=== PATIENT | female | born 1975 | race Caucasian/White ===

== ENCOUNTER 2017-06-02 11:55 | Observation (INO) | payer SELFPAY ==
[2017-06-02] VITALS (11 sets, daily range): BP systolic 124–157; BP diastolic 76–88; PULSE 87–96; RESP 16–22; TEMP 97.5–98.3; O2SAT 95–98
[~2017-06-02] VITALS: Ht 177.8 cm; Wt 100.0 kg
[~2017-06-02 11:55] MED LIST: ZOFR4TAB3 SL
--- NOTE | 2017-06-02 11:59 | PD ---
Physical Exam Date Seen by Provider: Jun 02, 2017 Time Seen by Provider: 11:57 Narrative 41 yo male here for chest tightness and hematemesis yesterday. Per patient she vomited phlem and "some blood" yesterday. Been coughing. Has chest tightness today. No abdominal pain. Pain is 7/10. Pressure like. No blood thinners. Vitals are stable in triage. Awaiting bed placement. Data Data Last Documented VS Vital Signs Date Time Temp Pulse Resp B/P Pulse Ox O2 Delivery O2 Flow Rate FiO2 06/02/17 11:56 98.3 92 20 157/88 96 Room Air [facility] Medical Record Reviewed: Yes Supervised Visit with GUILLERMO: No Gamaliel Zimmer Jun 02, 2017 11:59
[2017-06-02] MEDS ORDERED: ASPIRIN 325 MG TAB PO ONE (12:15)
[2017-06-02] MEDS ORDERED: SODIUM CHLORIDE 0.9% FLUSH 10 ML FLUSH IVF PRN (12:15)
--- NOTE | 2017-06-02 12:18 | PD ---
HPI Chief Complaint: Chest Pain Time Seen by Provider: 12:03 Travel History International Travel<30 days: No Contact w/Intl Traveler<30days: No Traveled to known affect area: No History of Present Illness HPI 41-year-old female arrives by private vehicle. Yesterday the patient vomited a few times. At one point there were spicules of blood in the emesis. Today she complains of retrosternal chest pain pleuritic in nature. Associated symptoms include shortness of breath. She's had no fever. She reports a history of DVTs in the past and has an IVC filter. She does not take any anticoagulants at this time. No vomiting today. PFSH Past Medical History Arthritis: No Asthma: No Autoimmune Disease: No Blood Disorders: No Anxiety: No Depression: No Heart Rhythm Problems: Yes (HEART POUNDED ON METFORMIN) Cancer: Yes (uterine) Cardiovascular Problems: No High Cholesterol: No Chemotherapy: No Chest Pain: No Congestive Heart Failure: No COPD: No Cerebrovascular Accident: No Diabetes: No Diminished Hearing: No Deep Vein Thrombosis: Yes (FILTER IN NECK) Endocrine: No GERD: No Glaucoma: No Genitourinary: No Headaches: Yes Hepatitis: No Hiatal Hernia: No Hypertension: No Immune Disorder: No Kidney Stones: No Musculoskeletal: No Neurologic: Yes Psychiatric: No Reproductive: No Respiratory: Yes (ASTHMA) Migraines: Yes Myocardial Infarction: No Radiation Therapy: No Renal Failure: No Seizures: No Sickle Cell Disease: No Sleep Apnea: No Thyroid Disease: No Ulcer: No ?: Not LMP: hyst : 0 Dilation and Curettage (D&C): Yes Past Surgical History Abdominal Surgery: No AICD: No Appendectomy: No Arteriovenous Shunt: No Cardiac Surgery: No Cholecystectomy: No Ear Surgery: No Endocrine Surgery: No Eye Surgery: No Genitourinary Surgery: No Gynecologic Surgery: Yes (D&C OCT 2009, PRESENTLY ADMITTED POST OP [facility]) Hysterectomy: Yes Insulin Pump: No Joint Replacement: No Oral Surgery: No Pacemaker: No Thoracic Surgery: No Other Surgery: Yes (FILTER PLACED IN NECK) Social History Alcohol Use: No (SOCIALLY) Tobacco Use: No Substance Use: No Allergies-Medications (Allergen,Severity, Reaction): Coded Allergies: Cipro (Verified Allergy, Intermediate, Rash, 06/02/17) Metformin (Verified Allergy, Intermediate, sob, 06/02/17) Reported Meds & Prescriptions Reported Meds & Active Scripts Active No Active Prescriptions or Reported Medications Review of Systems Except as stated in HPI: all other systems reviewed are Neg Physical Exam Narrative GENERAL: 41-year-old female well-nourished well-developed acute distress SKIN: Warm and dry. HEAD: Atraumatic. Normocephalic. EYES: Pupils equal and round. No scleral icterus. No injection or drainage. ENT: No nasal bleeding or discharge. Mucous membranes pink and moist. NECK: Trachea midline. No JVD. CARDIOVASCULAR: Regular rate and rhythm. RESPIRATORY: No accessory muscle use. Clear to auscultation. Breath sounds equal bilaterally. GASTROINTESTINAL: Abdomen soft, non-tender, nondistended. Hepatic and splenic margins not palpable. MUSCULOSKELETAL: Extremities without clubbing, cyanosis, or edema. No obvious deformities. NEUROLOGICAL: Awake and alert. No obvious cranial nerve deficits. Motor grossly within normal limits. Five out of 5 muscle strength in the arms and legs. Normal speech. PSYCHIATRIC: Appropriate mood and affect; insight and judgment normal. Data Data Last Documented VS Vital Signs Date Time Temp Pulse Resp B/P Pulse Ox O2 Delivery O2 Flow Rate FiO2 06/02/17 13:06 97.9 96 20 131/79 98 Nasal Cannula 2 Vital signs reviewed Orders Electrocardiogram (06/02/17 12:09) Basic Metabolic Panel (Bmp) (06/02/17 12:09) Ckmb (Isoenzyme) Profile (06/02/17 12:09) Complete Blood Count With Diff (06/02/17 12:09) Magnesium (Mg) (06/02/17 12:09) Prothrombin Time / Inr (Pt) (06/02/17 12:09) Act Partial Throm Time (Ptt) (06/02/17 12:09) Troponin I (06/02/17 12:09) Chest, Single Ap (06/02/17 12:09) Ecg Monitoring (06/02/17 12:09) Iv Access Insert/Monitor (06/02/17 12:09) Oximetry (06/02/17 12:09) Oxygen Administration (06/02/17 12:09) Aspirin (Aspirin) (06/02/17 12:15) Sodium Chloride 0.9% Flush (Ns Flush) (06/02/17 12:15) Ct Pulmonary Angiogram (06/02/17 12:09) Iohexol 350 Inj (Omnipaque 350 Inj) (06/02/17 13:32) Activity Bed Rest With Brp (06/02/17 14:09) Vital Signs (Adult) Q4H (06/02/17 14:09) Cardiac Rhythm .As Directed (06/02/17 14:09) Notify Dr: Other .PRN (06/02/17 14:09) Notify Dr. Parameters (06/02/17 14:09) Resp Oxygen Nasal Cannula (06/02/17 ) Ckmb (Isoenzyme) Profile (06/02/17 14:09) Ckmb (Isoenzyme) Profile (06/02/17 17:09) Troponin I (06/02/17 14:09) Troponin I (06/02/17 17:09) Electrocardiogram (06/02/17 14:09) Electrocardiogram (06/02/17 17:09) ^ Obtain (06/02/17 14:09) Sodium Chloride 0.9% Flush (Ns Flush) (06/02/17 14:15) Sodium Chloride 0.9% Flush (Ns Flush) (06/02/17 21:00) Acetaminophen (Tylenol) (06/02/17 14:15) Acetamin-Hydrocod 325-7.5 Mg (Downey 7.5 (06/02/17 14:15) Morphine Inj (Morphine Inj) (06/02/17 14:15) Ondansetron Inj (Zofran Inj) (06/02/17 14:15) Nitroglycerin Sl (Nitrostat Sl) (06/02/17 14:15) Aspirin (Aspirin) (06/03/17 09:00) Temazepam (Restoril) (06/02/17 14:15) Alprazolam (Xanax) (06/02/17 14:15) Community Outreach Manager / Telemetry [email or web address] (06/02/17 14:09) Admit Order (Ed Use Only) (06/02/17 14:09) Labs Laboratory Tests Test 06/02/17 12:20 White Blood Count 6.5 TH/MM3 Red Blood Count 4.45 MIL/MM3 Hemoglobin 12.8 GM/DL Hematocrit 38.5 % Mean Corpuscular Volume 86.4 FL Mean Corpuscular Hemoglobin 28.6 PG Mean Corpuscular Hemoglobin 33.1 % Concent Red Cell Distribution Width 15.6 % Platelet Count 146 TH/MM3 Mean Platelet Volume 8.7 FL Neutrophils (%) (Auto) 66.3 % Lymphocytes (%) (Auto) 25.5 % Monocytes (%) (Auto) 5.0 % Eosinophils (%) (Auto) 2.7 % Basophils (%) (Auto) 0.5 % Neutrophils # (Auto) 4.3 TH/MM3 Lymphocytes # (Auto) 1.6 TH/MM3 Monocytes # (Auto) 0.3 TH/MM3 Eosinophils # (Auto) 0.2 TH/MM3 Basophils # (Auto) 0.0 TH/MM3 CBC Comment DIFF FINAL Differential Comment Prothrombin Time 11.4 SEC Prothromb Time International 1.0 RATIO Ratio Activated Partial 25.2 SEC Thromboplast Time Sodium Level 136 MEQ/L Potassium Level 3.7 MEQ/L Chloride Level 102 MEQ/L Carbon Dioxide Level 26.3 MEQ/L Anion Gap 8 MEQ/L Blood Urea Nitrogen 8 MG/DL Creatinine 0.63 MG/DL Estimat Glomerular Filtration 105 ML/MIN Rate Random Glucose 229 MG/DL Calcium Level 9.0 MG/DL Magnesium Level 2.3 MG/DL Total Creatine Kinase 28 U/L Troponin I LESS THAN 0.02 NG/ML MDM Medical Decision Making Medical Screen Exam Complete: Yes Emergency Medical Condition: Yes Medical Record Reviewed: Yes Differential Diagnosis NSTEMI, unstable angina, coronary vasospasm, PE, PTX, aortic dissection, pericarditis, myocarditis, endocarditis, PNA, esophageal disease, aneurysm, musculoskeletal etiologies, anxiety, cocaine/sympathomimetic abuse Narrative Course CBC & BMP Diagram 06/02/17 12:20 Troponin less than 0.02 EKG: Sinus, rate 92, QRS interval 140 ms Last 24 hours Impressions Chest X-Ray 06/02/17 1209 Signed Impressions: Service Date/Time: Friday, June 02, 2017 12:29 - CONCLUSION: Mild basilar parenchymal opacities Rodrigo Li MD CT Angiography 06/02/17 1209 Signed Impressions: Service Date/Time: Friday, June 02, 2017 13:28 - CONCLUSION: 1. No evidence of pulmonary emboli. 2. No evidence of acute cardiac bony processes. 3. Hepatosplenomegaly; unchanged. Mynor Howell MD The patient will be For chest pain center evaluation. Diagnosis Primary Impression: Chest pain Qualified Code: R07.9 - Chest pain, unspecified type Admitting Information Admitting Physician Requests: Observation Scripts No Active Prescriptions or Reported Meds Alfred Roper MD Jun 02, 2017 12:18
[2017-06-02 12:34] LABS: AUTOMATED NEUTROPHIL # 4.3 TH/MM3 (1.8-7.7); BASOPHIL % 0.5 % (0.0-2.0); EOSINOPHIL # 0.2 TH/MM3 (0-0.4); EOSINOPHIL % 2.7 % (0.0-4.0); HEMATOCRIT 38.5 % (35.0-46.0); HEMO FLAGS DIFF FINAL; LYMPH % 25.5 % (9.0-44.0); LYMPHOCYTE # 1.6 TH/MM3 (1.0-4.8); MEAN CELL VOLUME 86.4 FL (80.0-100.0); MEAN CORPUSCULAR HEMOGLOBIN 28.6 PG (27.0-34.0); MEAN CORPUSCULAR HGB CONC 33.1 % (32.0-36.0); NEUT % 66.3 % (16.0-70.0); PLATELET COUNT 146 TH/MM3 (150-450); RED BLOOD COUNT 4.45 MIL/MM3 (4.00-5.30); RED CELL DISTRIBUTION WIDTH 15.6 % (11.6-17.2); WHITE BLOOD COUNT 6.5 TH/MM3 (4.0-11.0)
[2017-06-02 12:44] LABS: APTT (PATIENT) 25.2 SEC (24.3-30.1); PROTHROMBIN TIME - PATIENT 11.4 SEC (9.8-11.6)
[2017-06-02 12:52] LABS: ANION GAP 8 MEQ/L (5-15); BICARBONATE 26.3 MEQ/L (21.0-32.0); BLOOD UREA NITROGEN 8 MG/DL (7-18); CHLORIDE 102 MEQ/L (98-107); GLOMERULAR FILTRATION RATE 105 ML/MIN (>89); MAGNESIUM 2.3 MG/DL (1.5-2.5); POTASSIUM 3.7 MEQ/L (3.5-5.1); SODIUM (NA) 136 MEQ/L (136-145)
[2017-06-02 12:57] LABS: CREATINE KINASE 28 U/L (26-192)
--- NOTE | 2017-06-02 12:58 | RADRPT ---
EXAM DATE/TIME: 06/02/2017 12:29 [facility] COMPARISON: CHEST SINGLE AP, March 28, 2016, 1:57. INDICATIONS : Chest pain. MEDICAL HISTORY : None. SURGICAL HISTORY : None. ENCOUNTER: Initial ACUITY: 1 day PAIN SCORE: 8/10 LOCATION: Bilateral upper chest FINDINGS: Mild streaky basilar parenchymal opacity may be atelectasis. There is no evidence of effusion. Cardio mediastinal contours are satisfactory. CONCLUSION: Mild basilar parenchymal opacities Rodrigo Li MD on June 02, 2017 at 12:56 Board Certified Radiologist. This report was verified electronically.
[2017-06-02] MEDS ORDERED: IOHEXOL 350 MG/ML 10 ML VIAL (for RAD DIAG) IV ONE (13:32)
--- NOTE | 2017-06-02 13:49 | RADRPT ---
EXAM DATE/TIME: 06/02/2017 13:28 [facility] COMPARISON: CT PULMONARY ANGIOGRAM, March 26, 2014, 9:03. INDICATIONS : Chest pains with shortness of breath. IV CONTRAST: 50 cc Omnipaque 350 (iohexol) IV RADIATION DOSE: 23.00 CTDIvol (mGy) ; Patient body habitus MEDICAL HISTORY : Deep venous thrombosis. Asthma, Uterine cancer. SURGICAL HISTORY : Hysterectomy. ENCOUNTER: Initial ACUITY: 1 day PAIN SCALE: 5/10 LOCATION: Bilateral chest TECHNIQUE: Volumetric scanning of the chest was performed using a pulmonary embolism protocol MIP images were re constructed. Using automated exposure control and adjustment of the mA and/or kV according to patien t size, radiation dose was kept as low as reasonably achievable to obtain optimal diagnostic quality images. DICOM format image data is available electronically for review and comparison. Follow-up recommendations for incidentally detected pulmonary nodules are based at a minimum on nodul e size and patient risk factors according to Fleischner Society Guidelines. FINDINGS: PULMONARY ARTERIES: No filling defects are seen in the pulmonary arteries through the segmental level. LUNGS: There is no consolidation or pneumothorax . No concerning pulmonary nodule is visualized. PLEURAE: There is no pleural thickening or pleural effusion. MEDIASTINUM: There is good visualization of the great vessels of the middle mediastinum. No evidence of mediastin al or hilar adenopathy/mass. MUSCULOSKELETAL: Within normal limits for patient age. MISCELLANEOUS: The visualized upper abdominal organs demonstrate no acute abnormality. Again noted is enlargement of the liver and spleen. CONCLUSION: 1. No evidence of pulmonary emboli. 2. No evidence of acute cardiac bony processes. 3. Hepatosplenomegaly; unchanged. Mynor Howell MD on June 02, 2017 at 13:44 Board Certified Radiologist. This report was verified electronically.
[2017-06-02] MEDS ORDERED: SODIUM CHLORIDE 0.9% FLUSH 10 ML FLUSH IV FLUSH PRN (14:15)
[2017-06-02] MEDS ORDERED: ALPRAZolam 0.25 MG TAB PO PRN (14:15)
[2017-06-02] MEDS ORDERED: NITROGLYCERIN 0.4 MG SL 25 TABS/BTL SL PRN (14:15)
[2017-06-02] MEDS ORDERED: MORPHINE SULFATE 4 MG/ML INJ IV PRN (14:15)
[2017-06-02] MEDS ORDERED: ONDANSETRON HCL 4 MG/2 ML VIAL IV PRN (14:15)
[2017-06-02] MEDS ORDERED: ACETAMINOPHEN 500 MG CPLT PO PRN (14:15)
[2017-06-02] MEDS ORDERED: TEMAZEPAM 15 MG CAP PO PRN (14:15)
[2017-06-02] MEDS ORDERED: ACETAMINOPHEN/HYDROcodone 325 MG/7.5 MG TAB PO PRN (14:15)
[2017-06-02] MEDS: SODIUM CHLORIDE 0.9% FLUSH 10 ML FLUSH IV FLUSH SCH (14:29)
[2017-06-02] MEDS ORDERED: LORazepam 2 MG/ML VIAL IV PUSH ONE (14:30)
--- NOTE | 2017-06-02 16:57 | HHI.HP ---
[facility] Service [facility] Hospitalists Primary Care Physician No Primary Care Physician Admission Diagnosis Chest Pain Diagnoses: Chief Complaint: hematemesis Travel History International Travel<30 Days: No Contact w/Intl Traveler <30 Da: No Traveled to Known Affected Are: No History of Present Illness pateint is a 41 years old female came to the hospital complaining of chest pain. On further history patient has been having episodes of hematemesis that started last evening one hour after having dinner. Noted bright red blood. Also initially states that she coughed. Denies any choking sensation. States + "heartburn". On further history patient takes Excedrin equate at least 4-5 tablets at a time usually taking 3x a week almost on a regular basis. On review this medication has indomethacin component. Patient states though that she make sure that she takes it on a full stomach. Patient denies any melena or hematochezia. Bowel movements has been regular last bowel movement was yesterday. Denies any weight loss. Denies any reflux sensation Incidentally patient also have a a 75 pound pet dog that landed on her chest and abdomen few days ago. Review of Systems Constitutional: DENIES: Fever, Weight loss, Chills, Change in appetite Eyes: DENIES: Blurred vision, Double Vision Ears, nose, mouth, throat: DENIES: Tinnitus, Ear Pain, Epistaxis, Odynophagia Respiratory: DENIES: Cough, Hemoptysis, Sputum production, Shortness of breath Cardiovascular: DENIES: Chest pain, Palpitations, Dyspnea on Exertion, Lower Extremity Edema, Orthopnea Gastrointestinal: DENIES: Black stools, Bloody stools, Difficulty Swallowing, Anorexia Genitourinary: DENIES: Urgency, Hematuria, Vaginal discharge Musculoskeletal: DENIES: Joint pain, Stiffness Integumentary: DENIES: Pruritus Hematologic/lymphatic: DENIES: Bruising Immunologic/allergic: DENIES: Urticaria Neurologic: DENIES: Headache, Speech Problems, Tremor Psychiatric: DENIES: Suicidal Ideation, Homicidal Ideation Past Family Social History Past Medical History History of uterine cancer in 2010 status post total abdominal hysterectomy and bilateral salpingo-oophorectomy. Migraine headaches Reported Medications Excedrin Migraine Allergies: Coded Allergies: Cipro (Verified Allergy, Intermediate, Rash, 06/02/17) Metformin (Verified Allergy, Intermediate, sob, 06/02/17) Family History Positive family history of hypertension - father Mother with degenerative joint disease Social History Nonsmoker Very rare alcohol use Denies any IV drug use Physical Exam Vital Signs Vital Signs Date Time Temp Pulse Resp B/P Pulse Ox O2 Delivery O2 Flow Rate FiO2 06/02/17 16:38 98.3 91 16 124/76 97 06/02/17 15:50 97.8 89 18 126/81 98 Nasal Cannula 2 06/02/17 14:30 97 Nasal Cannula 2.00 06/02/17 14:30 97.8 88 20 126/77 98 Nasal Cannula 2 06/02/17 13:06 97.9 96 20 131/79 98 Nasal Cannula 2 06/02/17 12:10 22 98 Nasal Cannula 2 06/02/17 12:10 98 Nasal Cannula 2 06/02/17 12:06 95 22 99 Nasal Cannula 2 06/02/17 11:56 98.3 92 20 157/88 96 Room Air Physical Exam GENERAL: This is a well-nourished, well-developed patient, in no apparent distress. Obese SKIN: No rashes, ecchymoses or lesions. Cool and dry. HEAD: Atraumatic. Normocephalic. No temporal or scalp tenderness. EYES: Pupils equal round and reactive. Extraocular motions intact. No scleral icterus. ENT: Nose without bleeding, Throat without erythema, tonsillar hypertrophy or exudate. Airway patent. NECK: Trachea midline. No JVD or lymphadenopathy. Supple, nontender, no meningeal signs. CARDIOVASCULAR: Regular rate and rhythm without murmurs, gallops, or rubs. No chest wall tenderness RESPIRATORY: Clear to auscultation. Breath sounds equal bilaterally. No wheezes , rales, or rhonchi. GASTROINTESTINAL: Abdomen soft, non-tender, flabby good bowel sounds No guarding. No rigidity MUSCULOSKELETAL: Extremities without clubbing, cyanosis, or edema. No joint tenderness, effusion, or edema noted. No calf tenderness. Negative Homans sign bilaterally. NEUROLOGICAL: Awake and alert. Cranial nerves II through XII intact. Motor and sensory grossly within normal limits. Five out of 5 muscle strength in all muscle groups. Normal speech. Laboratory Laboratory Tests Test 06/02/17 06/02/17 12:20 15:00 White Blood Count 6.5 Red Blood Count 4.45 Hemoglobin 12.8 Hematocrit 38.5 Mean Corpuscular Volume 86.4 Mean Corpuscular Hemoglobin 28.6 Mean Corpuscular Hemoglobin 33.1 Concent Red Cell Distribution Width 15.6 Platelet Count 146 Mean Platelet Volume 8.7 Neutrophils (%) (Auto) 66.3 Lymphocytes (%) (Auto) 25.5 Monocytes (%) (Auto) 5.0 Eosinophils (%) (Auto) 2.7 Basophils (%) (Auto) 0.5 Neutrophils # (Auto) 4.3 Lymphocytes # (Auto) 1.6 Monocytes # (Auto) 0.3 Eosinophils # (Auto) 0.2 Basophils # (Auto) 0.0 CBC Comment DIFF FINAL Differential Comment Prothrombin Time 11.4 Prothromb Time International 1.0 Ratio Activated Partial 25.2 Thromboplast Time Sodium Level 136 Potassium Level 3.7 Chloride Level 102 Carbon Dioxide Level 26.3 Anion Gap 8 Blood Urea Nitrogen 8 Creatinine 0.63 Estimat Glomerular Filtration 105 Rate Random Glucose 229 Calcium Level 9.0 Magnesium Level 2.3 Total Creatine Kinase 28 Troponin I LESS THAN 0.02 LESS THAN 0.02 Result Diagram: 06/02/17 1220 06/02/17 1220 Imaging Last Impressions Chest X-Ray 06/02/17 1209 Signed Impressions: Service Date/Time: Friday, June 02, 2017 12:29 - CONCLUSION: Mild basilar parenchymal opacities Rodrigo Li MD CT Angiography 06/02/17 1209 Signed Impressions: Service Date/Time: Friday, June 02, 2017 13:28 - CONCLUSION: 1. No evidence of pulmonary emboli. 2. No evidence of acute cardiac bony processes. 3. Hepatosplenomegaly; unchanged. Mynor Howell MD Assessment and Plan Assessment and Plan 41-year-old female with Upper GI bleeding episodes of hematemesis- possible NSAID induced gastropathy associated with retching and vomiting. Will get GI consult to evaluate with endoscopy Clear liquids nothing by mouth post midnight Start patient on IV Protonix 40 mg daily Chest pain likely GI relate Troponin negative. 12-lead EKG no acute ST-T wave changes History of migraine headaches. Advice on NSAIDs use. Ultram when necessary for headaches Hyperglycemia blood sugar of 229. Possible glucose intolerance with obesity. Patient states that he had punch drink prior to coming in Obesity BMI of 31.6 We'll check a blood sugar twice a day and monitor. Will do some diabetes teaching counseled. Goals. Nutrition consult On review of records positive palpitations with metformin and when asked about this patient states that he was she was placed on this for possible PCO S prior to the abdominal hysterectomy Diet modification. We will check a hemoglobin A1c Discussed with patient and family member at bedside Motivated with weight reduction Discussed Condition With Patient Raji Perez MD Jun 02, 2017 16:57
[2017-06-02] MEDS: PANTOPRAZOLE SODIUM 40 MG VIAL IV PUSH SCH (17:52)
[2017-06-02 18:11] LABS: CREATINE KINASE 22 U/L (26-192)
--- NOTE | 2017-06-02 18:32 | PD.CONS ---
HPI History of Present Illness This is a 41 year old female who complains of three episodes of hematemesis yesterday and today. she reports first episode of emesis contained mucous and blood but no food. She states subsequent episodes of emesis had stringy red blood. No coffee grounds. She has since noticed some chest discomfort described as dull, moderate and worse with breathing. Never had this happen before. Reports mild symptoms of heartburn when she eats spicy food that responds to drinking milk. No dysphagia. She has headaches and takes Excedrin and other nsaids. She has never had ulcers. She has past medical history of uterine cancer and had hysterectomy. ROS: She denies abdominal pain, fever chills, myalgias, rash. Otherwise complete ros is negative. PFSH Past Medical History History of uterine cancer in 2010 status post total abdominal hysterectomy and bilateral salpingo-oophorectomy. Migraine headaches Past Surgical History Hysterectomy Coded Allergies: Cipro (Verified Allergy, Intermediate, Rash, 06/02/17) Metformin (Verified Allergy, Intermediate, sob, 06/02/17) Family History Positive family history of hypertension - father Mother with degenerative joint disease Social History Nonsmoker Very rare alcohol use Denies any IV drug use GI Exam Vitals I&O Vital Signs Date Time Temp Pulse Resp B/P Pulse Ox O2 Delivery O2 Flow Rate FiO2 06/02/17 16:38 98.3 91 16 124/76 97 06/02/17 15:50 97.8 89 18 126/81 98 Nasal Cannula 2 06/02/17 14:30 97 Nasal Cannula 2.00 06/02/17 14:30 97.8 88 20 126/77 98 Nasal Cannula 2 06/02/17 13:06 97.9 96 20 131/79 98 Nasal Cannula 2 06/02/17 12:10 22 98 Nasal Cannula 2 06/02/17 12:10 98 Nasal Cannula 2 06/02/17 12:06 95 22 99 Nasal Cannula 2 06/02/17 11:56 98.3 92 20 157/88 96 Room Air Laboratory Test 06/02/17 06/02/17 06/02/17 12:20 15:00 17:26 White Blood Count 6.5 TH/MM3 Red Blood Count 4.45 MIL/MM3 Hemoglobin 12.8 GM/DL Hematocrit 38.5 % Mean Corpuscular Volume 86.4 FL Mean Corpuscular Hemoglobin 28.6 PG Mean Corpuscular Hemoglobin 33.1 % Concent Red Cell Distribution Width 15.6 % Platelet Count 146 TH/MM3 Mean Platelet Volume 8.7 FL Neutrophils (%) (Auto) 66.3 % Lymphocytes (%) (Auto) 25.5 % Monocytes (%) (Auto) 5.0 % Eosinophils (%) (Auto) 2.7 % Basophils (%) (Auto) 0.5 % Neutrophils # (Auto) 4.3 TH/MM3 Lymphocytes # (Auto) 1.6 TH/MM3 Monocytes # (Auto) 0.3 TH/MM3 Eosinophils # (Auto) 0.2 TH/MM3 Basophils # (Auto) 0.0 TH/MM3 CBC Comment DIFF FINAL Differential Comment Prothrombin Time 11.4 SEC Prothromb Time International 1.0 RATIO Ratio Activated Partial 25.2 SEC Thromboplast Time Sodium Level 136 MEQ/L Potassium Level 3.7 MEQ/L Chloride Level 102 MEQ/L Carbon Dioxide Level 26.3 MEQ/L Anion Gap 8 MEQ/L Blood Urea Nitrogen 8 MG/DL Creatinine 0.63 MG/DL Estimat Glomerular Filtration 105 ML/MIN Rate Random Glucose 229 MG/DL Calcium Level 9.0 MG/DL Magnesium Level 2.3 MG/DL Total Creatine Kinase 28 U/L 22 U/L Troponin I LESS THAN 0.02 LESS THAN 0.02 LESS THAN 0.02 NG/ML NG/ML NG/ML Physical Examination HEENT: Pupils round and reactive to light; normocephalic; atraumatic; no jaundice. Throat is clear. NECK: Neck is supple, no JVD, no lymphadenopathy. CHEST: Chest is clear to auscultation and percussion. CARDIAC: Regular rate and rhythm with no murmur gallop or rubs. ABDOMEN: Soft, nondistended, nontender; no hepatosplenomegaly; bowel sounds are present in all four quadrants. EXTREMITIES: No clubbing, cyanosis, or edema. SKIN: Normal; no rash; no jaundice. Few tattoos. 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 Assessment and Plan Plan Imp: Hematemesis Chest discomfort, possibly due to GERD. Plan: PPI protonix 40mg IV BID. EGD tomorrow. Alek Mooney MD Jun 02, 2017 18:32
[2017-06-02] MEDS: traMADol/ACETAMINOPHEN 37.5/325 1 TAB PO PRN (21:03)
[2017-06-02 22:28] LABS: CREATINE KINASE 23 U/L (26-192)
[2017-06-03] VITALS (14 sets, daily range): BP systolic 122–128; BP diastolic 67–74; PULSE 78–95; RESP 15–20; TEMP 97.6–98.7; O2SAT 94–98
[2017-06-03] MEDS: traMADol/ACETAMINOPHEN 37.5/325 1 TAB PO PRN (05:24)
[2017-06-03 07:18] LABS: AUTOMATED NEUTROPHIL # 4.8 TH/MM3 (1.8-7.7); BASOPHIL % 0.5 % (0.0-2.0); EOSINOPHIL # 0.2 TH/MM3 (0-0.4); EOSINOPHIL % 3.2 % (0.0-4.0); HEMATOCRIT 35.7 % (35.0-46.0); HEMO FLAGS DIFF FINAL; LYMPH % 18.4 % (9.0-44.0); LYMPHOCYTE # 1.2 TH/MM3 (1.0-4.8); MEAN CORPUSCULAR HEMOGLOBIN 28.4 PG (27.0-34.0); MEAN CORPUSCULAR HGB CONC 32.7 % (32.0-36.0); MONO % 5.9 % (0.0-8.0); PLATELET COUNT 145 TH/MM3 (150-450); RED CELL DISTRIBUTION WIDTH 15.6 % (11.6-17.2); WHITE BLOOD COUNT 6.7 TH/MM3 (4.0-11.0)
[2017-06-03 07:38] LABS: ANION GAP 6 MEQ/L (5-15); AST (GOT) 55 U/L (15-37); BICARBONATE 27.6 MEQ/L (21.0-32.0); BLOOD UREA NITROGEN 9 MG/DL (7-18); CHLORIDE 100 MEQ/L (98-107); GLOMERULAR FILTRATION RATE 113 ML/MIN (>89); POTASSIUM 3.7 MEQ/L (3.5-5.1); SODIUM (NA) 134 MEQ/L (136-145)
[2017-06-03 07:39] LABS: ALT (GPT) 38 U/L (10-53)
[2017-06-03 07:48] LABS: ALKALINE PHOSPHATASE 87 U/L (45-117)
[2017-06-03] MEDS: SODIUM CHLORIDE 0.9% FLUSH 10 ML FLUSH IV FLUSH SCH ×2 (08:00→21:02)
[2017-06-03] MEDS ORDERED: PROPOFOL 200 MG/20 ML AMP IV ONE (08:46)
[2017-06-03] MEDS ORDERED: ASPIRIN 325 MG TAB PO SCH (09:00)
--- NOTE | 2017-06-03 09:07 | HHI.GIFU ---
Subjective Remarks EGD done today showed irregular Z line and moderate acute antral gastritis. No ulcers. No risk of massive bleed. Objective Vitals I&O Vital Signs Date Time Temp Pulse Resp B/P Pulse Ox O2 Delivery O2 Flow Rate FiO2 06/03/17 07:15 97.8 82 16 128/73 98 06/03/17 04:57 97.7 86 18 124/67 95 06/03/17 00:42 97.6 82 20 128/74 94 06/02/17 22:36 98 Nasal Cannula 2.00 06/02/17 21:02 97.5 90 18 126/77 97 06/02/17 21:01 97.5 90 18 95 06/02/17 18:14 87 06/02/17 16:38 98.3 91 16 124/76 97 06/02/17 15:50 97.8 89 18 126/81 98 Nasal Cannula 2 06/02/17 14:30 97 Nasal Cannula 2.00 06/02/17 14:30 97.8 88 20 126/77 98 Nasal Cannula 2 06/02/17 13:06 97.9 96 20 131/79 98 Nasal Cannula 2 06/02/17 12:10 22 98 Nasal Cannula 2 06/02/17 12:10 98 Nasal Cannula 2 06/02/17 12:06 95 22 99 Nasal Cannula 2 06/02/17 11:56 98.3 92 20 157/88 96 Room Air I/O 06/02/17 06/02/17 06/02/17 06/03/17 06/03/17 06/03/17 07:00 15:00 23:00 07:00 15:00 23:00 Intake Total 1000 ml Balance 1000 ml Intake Oral 1000 ml # Voids 2 Laboratory Laboratory Tests Test 06/02/17 06/02/17 06/02/17 06/02/17 12:20 15:00 17:26 21:35 White Blood Count 6.5 Red Blood Count 4.45 Hemoglobin 12.8 Hematocrit 38.5 Mean Corpuscular Volume 86.4 Mean Corpuscular Hemoglobin 28.6 Mean Corpuscular Hemoglobin 33.1 Concent Red Cell Distribution Width 15.6 Platelet Count 146 Mean Platelet Volume 8.7 Neutrophils (%) (Auto) 66.3 Lymphocytes (%) (Auto) 25.5 Monocytes (%) (Auto) 5.0 Eosinophils (%) (Auto) 2.7 Basophils (%) (Auto) 0.5 Neutrophils # (Auto) 4.3 Lymphocytes # (Auto) 1.6 Monocytes # (Auto) 0.3 Eosinophils # (Auto) 0.2 Basophils # (Auto) 0.0 CBC Comment DIFF FINAL Differential Comment Prothrombin Time 11.4 Prothromb Time International 1.0 Ratio Activated Partial 25.2 Thromboplast Time Sodium Level 136 Potassium Level 3.7 Chloride Level 102 Carbon Dioxide Level 26.3 Anion Gap 8 Blood Urea Nitrogen 8 Creatinine 0.63 Estimat Glomerular Filtration 105 Rate Random Glucose 229 Calcium Level 9.0 Magnesium Level 2.3 Total Creatine Kinase 28 22 23 Troponin I LESS THAN 0.02 LESS THAN 0.02 LESS THAN 0.02 LESS THAN 0.02 Test 06/03/17 06:52 White Blood Count 6.7 Red Blood Count 4.10 Hemoglobin 11.7 Hematocrit 35.7 Mean Corpuscular Volume 87.0 Mean Corpuscular Hemoglobin 28.4 Mean Corpuscular Hemoglobin 32.7 Concent Red Cell Distribution Width 15.6 Platelet Count 145 Mean Platelet Volume 8.2 Neutrophils (%) (Auto) 72.0 Lymphocytes (%) (Auto) 18.4 Monocytes (%) (Auto) 5.9 Eosinophils (%) (Auto) 3.2 Basophils (%) (Auto) 0.5 Neutrophils # (Auto) 4.8 Lymphocytes # (Auto) 1.2 Monocytes # (Auto) 0.4 Eosinophils # (Auto) 0.2 Basophils # (Auto) 0.0 CBC Comment DIFF FINAL Differential Comment Sodium Level 134 Potassium Level 3.7 Chloride Level 100 Carbon Dioxide Level 27.6 Anion Gap 6 Blood Urea Nitrogen 9 Creatinine 0.59 Estimat Glomerular Filtration 113 Rate Random Glucose 193 Calcium Level 8.5 Total Bilirubin 1.0 Aspartate Amino Transf 55 (AST/SGOT) Alanine Aminotransferase 38 (ALT/SGPT) Alkaline Phosphatase 87 Total Protein 7.4 Albumin 3.1 Thyroid Stimulating Hormone 3.560 3rd Gen Physical Exam HEENT: Pupils round and reactive to light; normocephalic; atraumatic; no jaundice. Throat is clear. NECK: Neck is supple, no JVD, no lymphadenopathy. CHEST: Chest is clear to auscultation and percussion. CARDIAC: Regular rate and rhythm with no murmur gallop or rubs. ABDOMEN: Soft, nondistended, nontender; no hepatosplenomegaly; bowel sounds are present in all four quadrants. EXTREMITIES: No clubbing, cyanosis, or edema. SKIN: Normal; no rash; no jaundice. SECURITIES COUNSELOR: No focal deficits; alert and oriented times three. Assessment and Plan Plan Imp: Hematemesis Chest discomfort, possibly due to GERD. EGD shows GERD and moderate acute gastritis. No ulcers. No bleeding. Plan: PPI protonix 40mg IV BID. OK for discharge today. Continue protonix po as outpatient. Avoid NSAIDs Alek Mooney MD Jun 03, 2017 09:07
--- NOTE | 2017-06-03 11:27 | EKG ---
Date Performed: 06/02/2017 Time Performed: 15:49:45 PTAGE: 41 years EKG: Sinus rhythm MODERATE INTRAVENTRICULAR CONDUCTION DELAY NONSPECIFIC T-WAVE ABNORMALITY BORDERLINE ECG Compared to prior tracing no significant change PREVIOUS TRACING : 03/27/2016 23.42 DOCTOR: Mark Uriarte Interpretating Date/Time 06/03/2017 11:25:17
[2017-06-03] MEDS ORDERED: ACETAMINOPHEN/HYDROcodone 325 MG/5 MG TAB PO ONE (11:45)
--- NOTE | 2017-06-03 11:50 | HHI.PR ---
Subjective Remarks Follow up for atypical chest pain, epigastric pain, nausea/vomiting/ hematemesis. The patient is seen s/p EGD which revealed moderate acute gastritis , irregular Z line, GERD. The patient tolerated a small meal post procedure. Denies any abdominal pain/nausea/vomiting. She reports a diffuse global headache today with mild photophobia. She states she has 3 migraines per week and this is consistent with previous. She is requesting pain medication. Otherwise the patient has no other medical complaints. Objective Vitals Vital Signs Date Time Temp Pulse Resp B/P Pulse Ox O2 Delivery O2 Flow Rate FiO2 06/03/17 09:16 98.0 84 20 134/79 93 06/03/17 09:01 98.1 85 20 126/72 95 06/03/17 08:00 87 06/03/17 07:15 97.8 82 16 128/73 98 06/03/17 04:57 97.7 86 18 124/67 95 06/03/17 04:08 88 06/03/17 00:42 97.6 82 20 128/74 94 06/03/17 00:02 78 06/02/17 22:36 98 Nasal Cannula 2.00 06/02/17 21:02 97.5 90 18 126/77 97 06/02/17 21:01 97.5 90 18 95 06/02/17 20:04 91 06/02/17 18:14 87 06/02/17 16:38 98.3 91 16 124/76 97 06/02/17 15:50 97.8 89 18 126/81 98 Nasal Cannula 2 06/02/17 14:30 97 Nasal Cannula 2.00 06/02/17 14:30 97.8 88 20 126/77 98 Nasal Cannula 2 06/02/17 13:06 97.9 96 20 131/79 98 Nasal Cannula 2 06/02/17 12:10 22 98 Nasal Cannula 2 06/02/17 12:10 98 Nasal Cannula 2 06/02/17 12:06 95 22 99 Nasal Cannula 2 06/02/17 11:56 98.3 92 20 157/88 96 Room Air I/O 06/02/17 06/02/17 06/02/17 06/03/17 06/03/17 06/03/17 07:00 15:00 23:00 07:00 15:00 23:00 Intake Total 1000 ml Balance 1000 ml Intake Oral 1000 ml # Voids 2 Result Diagram: 06/03/17 0652 06/03/17 0652 Imaging Last Impressions Chest X-Ray 06/02/17 1209 Signed Impressions: Service Date/Time: Friday, June 02, 2017 12:29 - CONCLUSION: Mild basilar parenchymal opacities Rodrigo Li MD CT Angiography 06/02/17 1209 Signed Impressions: Service Date/Time: Friday, June 02, 2017 13:28 - CONCLUSION: 1. No evidence of pulmonary emboli. 2. No evidence of acute cardiac bony processes. 3. Hepatosplenomegaly; unchanged. Mynor Howell MD Objective Remarks GENERAL: Well-nourished, well-developed middle aged female patient in [facility]. SKIN: Warm and dry. No rash. HEENT: Normocephalic. Atraumatic. Pupils equal and round. Mucous membranes pink and moist. CARDIOVASCULAR: Regular rate and rhythm. S1, S2 noted. No murmur appreciated. RESPIRATORY: No accessory muscle use. Clear to auscultation. Breath sounds equal bilaterally. GASTROINTESTINAL: Abdomen soft, non-tender, nondistended. Normoactive bowel sounds x4. MUSCULOSKELETAL: No obvious deformities. Extremities without clubbing, cyanosis , or edema. NEUROLOGICAL: Awake and alert. No obvious cranial nerve deficits. Motor grossly within normal limits. Normal speech. Procedures EGD 06/[address] Mooney showed irregular Z line and moderate acute antral gastritis. No ulcers. No risk of massive bleed. Medications and IVs Current Medications Medications (Trade) Dose Ordered Sig/Venus Route Start Time Stop Time Status Last Admin (NS Flush) 2 ml UNSCH PRN IVF 06/02/17 12:15 06/02/17 12:24 (NS Flush) 2 ml UNSCH PRN IV FLUSH 06/02/17 14:15 (NS Flush) 2 ml BID IV FLUSH 06/02/17 21:00 06/02/17 14:29 (Morphine Inj) 2 mg Q4H PRN IV 06/02/17 14:15 (Zofran Inj) 4 mg Q6H PRN IV 06/02/17 14:15 06/03/17 05:25 (Nitrostat Sl) 0.4 mg Q5M PRN SL 06/02/17 14:15 (Restoril) 15 mg HS PRN PO 06/02/17 14:15 (Xanax) 0.25 mg Q8H PRN PO 06/02/17 14:15 (Protonix Inj) 40 mg Q24H IV PUSH 06/02/17 17:00 06/02/17 17:52 (Ultracet 37.5-325 Mg) 1 tab Q8HR PRN PO 06/02/17 18:00 06/03/17 05:24 (Fioricet 325-50-40) 1 tab Q8H PRN PO 06/03/17 13:00 A/P Problem List: (1) Chest pain ICD Code: R07.9 Status: Acute (2) Acute gastritis ICD Code: K29.00 Status: Acute (3) GERD (gastroesophageal reflux disease) ICD Code: K21.9 Status: Acute (4) Hematemesis ICD Code: K92.0 Status: Acute Assessment and Plan 41-year-old female with hx of uterine cancer s/p hysterectomy and b/l salpingo- oophorectomy, chronic migraines, presents with epigastric pain, nausea/vomiting/ hematemesis Upper GI Bleeding: episodes of hematemesis/abdominal pain- possible NSAID induced gastropathy, patient uses Excedrin migraine frequently. -Started on IV Protonix -GI Consulted -EGD 06/03 showed GERD and moderate acute gastritis, no active bleeding -diet advanced, patient tolerated well -cleared for discharge by GI on Protonix, avoid NSAIDs Atypical Chest pain: strongly suspect GI related, likely secondary to gastritis/ GERD as above -ACS ruled out with negative serial cardiac enzymes x4 and EKG with no acute ischemic changes -symptoms resolved after starting on PPI Migraine Headaches: patient using Excedrin frequently, counseled on discontinuing all NSAIDs -given tramadol without relief, then given [place] x1, headache improving -Continue fioricet prn -Outpatient f/up with neuro or PCP Hyperglycemia: blood sugar of 229. Possible glucose intolerance with obesity, although patient had punch prior to arrival. Obesity BMI of 31.6 -On review of records, patient had palpitations with metformin, patient states she was placed on this for possible PCOS prior to the abdominal hysterectomy -HgbA1c pending -counseled on diet modification and weight reduction, patient motivated DVT Prophylaxis: avoid chemoprophylaxis with GI bleeding; likely discharge patient today Discharge Planning 1400hrs: Possible discharge later today if headache improves and HgbA1c resulted. Discussed with lab, A1c should be available by this afternoon. 1750hrs: Patient's HgbA1c resulted at 8.5. Had long discussion with the patient who is very tearful after being told she has type 2 diabetes. She is very resistant to insulin, asks if she can try any oral medication first. She was on metformin previously for PCOS and states she had significant palpitations where her heart was beating out of her chest. She has not yet received Blue Card although case management did request one earlier today. She is very concerned about being able to afford any medications or a glucometer. She states she has no money. She is requesting if we can assist with filling prescriptions prior to leaving. Will hold off on discharge today. Start on glipizide 5mg in the morning. Consult medical educator and wire drawing machine operator. Patient educated on checking blood glucose tidachs and keeping log to report to PCP. Problem Qualifiers (1) Chest pain: Qualified Code: R07.9 - Chest pain, unspecified type Tomasa Cisse PA-C Jun 03, 2017 11:50
[2017-06-03] MEDS ORDERED: BUTA1CAP PO (12:02)
[2017-06-03] MEDS ORDERED: PANT40TA3 PO (12:02)
[2017-06-03] MEDS ORDERED: ACETAMIN 325 MG/BUTALBITAL 50 MG/CAFFEINE 40 MG TAB PO PRN (13:00)
--- NOTE | 2017-06-03 16:06 | EKG ---
Date Performed: 06/02/2017 Time Performed: 12:07:00 PTAGE: 41 years EKG: Normal Sinus rhythm Slight nonspecific Intraventricular conduction delay BORDERLINE ECG Compared to prior tracing no sig nificant change PREVIOUS TRACING :03/27/16 DOCTOR: Mark Uriarte Interpretating Date/Time 06/03/2017 16:04:40
[2017-06-03 16:07] LABS: HEMOGLOBIN Ao 81.8 %; HEMOGLOBIN F 1.3 %; HEMOGLOBIN LA1C 2.2 %; HEMOGLOBIN P3 3.9 %
--- NOTE | 2017-06-03 17:59 | HHI.DCPOC ---
Discharge Care Plan Diagnosis: (1) New onset type 2 diabetes mellitus (2) Acute gastritis (3) GERD (gastroesophageal reflux disease) Goals to Promote Your Health * To prevent worsening of your condition and complications * To maintain your health at the optimal level Directions to Meet Your Goals Take your medications as prescribed Follow your dietary instruction Follow activity as directed Keep your appointments as scheduled Take your immunizations and boosters as scheduled If your symptoms worsen call your PCP, if no PCP go to Urgent Care Center or Emergency Room Smoking is Dangerous to Your Health. Avoid second hand smoke Call the 24-hour hour crisis hotline for domestic abuse at Tomasa Cisse PA-C Jun 03, 2017 17:59
[2017-06-03] MEDS ORDERED: GLUCAGON 1 MG/ML VIAL OTHER PRN (18:00)
[2017-06-03] MEDS ORDERED: DEXTROSE 50% IN WATER 50 ML VIAL(D50) IV PRN (18:00)
[2017-06-03] MEDS: PANTOPRAZOLE SODIUM 40 MG VIAL IV PUSH SCH (18:02)
[2017-06-03] MEDS: INSULIN ASPART SUPPLEMENTAL SCALE SQ SCH (21:00)
[2017-06-04] VITALS (8 sets, daily range): BP systolic 117–130; BP diastolic 60–68; PULSE 87–96; RESP 18–20; TEMP 97.9–98.7; O2SAT 93–95
[2017-06-04] MEDS: INSULIN ASPART SUPPLEMENTAL SCALE SQ SCH ×2 (06:21→11:21)
[2017-06-04] MEDS ORDERED: glipiZIDE 5 MG TAB PO SCH (08:00)
[2017-06-04] MEDS ORDERED: SUMAtriptan INJ 6 MG/0.5 ML VIAL SQ ONE (08:30)
--- NOTE | 2017-06-04 08:41 | HHI.PR ---
Subjective Remarks Follow-up for gastritis, migraines. The patient continues to complain of chronic migraine headache. She states that no oral pills up really helped her, only the Excedrin Migraine has helped in the past. She's never tried Imitrex. She denies any extremity numbness, tingling, or weakness. She has noticed that her left calf has been more painful lately. She does have a history of DVT in that leg. Objective Vitals Vital Signs Date Time Temp Pulse Resp B/P Pulse Ox O2 Delivery O2 Flow Rate FiO2 06/04/17 08:16 97.9 89 20 117/68 06/04/17 05:02 98.7 96 18 130/66 94 06/04/17 04:33 94 06/04/17 03:18 90 06/04/17 00:40 98.3 87 18 121/67 93 06/03/17 20:43 98.1 89 18 127/74 98 06/03/17 20:22 95 06/03/17 19:13 96 21 06/03/17 18:33 87 06/03/17 15:30 98.7 82 16 122/71 95 06/03/17 13:57 96 21 06/03/17 13:00 82 06/03/17 11:35 98.6 82 15 123/68 94 06/03/17 09:16 98.0 84 20 134/79 93 06/03/17 09:01 98.1 85 20 126/72 95 I/O 06/03/17 06/03/17 06/03/17 06/04/17 06/04/17 06/04/17 07:00 15:00 23:00 07:00 15:00 23:00 Intake Total 560 ml Balance 560 ml Intake Oral 560 ml # Voids 3 # Bowel Movements 1 Result Diagram: 06/03/17 0652 06/03/17 0652 Imaging Last Impressions Chest X-Ray 06/02/17 120 Signed Impressions: Service Date/Time: Friday, June 02, 2017 12:29 - CONCLUSION: Mild basilar parenchymal opacities Rodrigo Li MD CT Angiography 06/02/17 120 Signed Impressions: Service Date/Time: Friday, June 02, 2017 13:28 - CONCLUSION: 1. No evidence of pulmonary emboli. 2. No evidence of acute cardiac bony processes. 3. Hepatosplenomegaly; unchanged. Mynor Howell MD Objective Remarks GENERAL: Well-developed well-nourished obese. In no acute distress. SKIN: Warm and dry. No lesions noted. HEENT: Normocephalic. Pupils equal and round. Mucous membranes pink and moist. CARDIOVASCULAR: Regular rate and rhythm. No murmur appreciated. RESPIRATORY: No accessory muscle use. Clear to auscultation. Breath sounds equal bilaterally. GASTROINTESTINAL: Abdomen soft, non-tender, nondistended. Bowel sounds x4. MUSCULOSKELETAL: Left calf with mild varicose veins and TTP, no swelling. No clubbing or cyanosis. No edema. NEUROLOGICAL: Awake and alert. No focal neurological deficits. Moves upper and lower extremities spontaneously. Normal speech. PSYCHIATRIC: Appropriate mood and affect; insight and judgment normal. Procedures EGD 06/[address] Mooney showed irregular Z line and moderate acute antral gastritis. No ulcers. No risk of massive bleed. A/P Problem List: (1) Chest pain ICD Code: R07.9 Status: Resolved (2) Acute gastritis ICD Code: K29.00 Status: Acute (3) GERD (gastroesophageal reflux disease) ICD Code: K21.9 Status: Acute (4) Hematemesis ICD Code: K92.0 Status: Resolved Assessment and Plan 41-year-old female with hx of uterine cancer s/p hysterectomy and b/l salpingo- oophorectomy, chronic migraines, presents with epigastric pain, nausea/vomiting/ hematemesis Upper GI Bleeding: episodes of hematemesis/abdominal pain- possible NSAID induced gastropathy, patient uses Excedrin migraine frequently. -Started on IV Protonix -GI Consulted -EGD 06/03 showed GERD and moderate acute gastritis, no active bleeding -diet advanced, patient tolerated well -cleared for discharge by GI on PPI, avoid NSAIDs Atypical Chest pain: strongly suspect GI related, likely secondary to gastritis/ GERD as above -ACS ruled out with negative serial cardiac enzymes x4 and EKG with no acute ischemic changes -Pulmonary angiogram negative for PE Migraine Headaches: patient using Excedrin frequently, counseled on discontinuing all NSAIDs -Trial of Imitrex 1 -Continue fioricet prn -Outpatient f/up with neuro or PCP New-onset diabetes: Hemoglobin A1c 8.5. Previously intolerant to metformin which she was on for PCOS (s/p hysterectomy) -Monitor Accu-Cheks. Cover with SSI. -Start on glipizide, consider increasing to twice daily -religious educator and dietitian consulted -counseled on diet modification and weight reduction, patient motivated Left calf tenderness: Reported history of DVT in that leg. Possibly secondary to varicose veins. -Check ultrasound rule out DVT DVT Prophylaxis: avoid chemoprophylaxis with GI bleeding; avoid SCDs of possible DVT; likely discharge patient today Discharge Planning Anticipate discharge later today depending on results of Doppler ultrasound, response to Imitrex, and blood glucose control. Problem Qualifiers (1) Chest pain: Qualified Code: R07.9 - Chest pain, unspecified type (2) Acute gastritis: Qualified Code: K29.00 - Other acute gastritis without hemorrhage (3) GERD (gastroesophageal reflux disease): Qualified Code: K21.9 - Gastroesophageal reflux disease without esophagitis Markus Valentine Jun 04, 2017 08:41
[2017-06-04] MEDS: SODIUM CHLORIDE 0.9% FLUSH 10 ML FLUSH IV FLUSH SCH (09:00)
--- NOTE | 2017-06-04 09:45 | RADRPT ---
EXAM DATE/TIME: 06/04/2017 08:44 [facility] COMPARISON: No previous studies available for comparison. INDICATIONS : Left leg pain. MEDICAL HISTORY : Hypertension. Deep venous thrombosis. Uterine cancer. Migraines. Heart murmur. Chest pain. Asthma . Polycystic ovaries. SURGICAL HISTORY : Hysterectomy. D&C. Radiation therapy. Blood transfusions. IVC filter. ENCOUNTER: Initial ACUITY: 1 day PAIN SCORE: 9/10 LOCATION: Left leg. TECHNIQUE: Venous ultrasound of the leg was performed from the inguinal ligament to the proximal calf. Real-kait e, color Doppler and spectral tracing, compression and augmentation techniques were used. FINDINGS: There is normal compressibility of the deep venous system from the inguinal region to the proximal ca lf. No echogenic clot is seen in the lumen of the common femoral, femoral, popliteal, and posterior tibial veins. There is a normal response of the venous system to proximal and distal augmentation an d respiration. CONCLUSION: No DVT is identified within the left lower extremity. Rodrigo Schmidt MD on June 04, 2017 at 9:43 Board Certified Radiologist. This report was verified electronically.
[2017-06-04] MEDS ORDERED: GLIP5 PO (11:52)
[2017-06-04] MEDS ORDERED: IMIT25TA PO (11:54)
== END 2017-06-04 16:07 | disposition home or self-care (01) ==
LOC: NEPC 11:55 → NEDA 14:12 → NEPHCDU 16:11
PROVIDERS: ADMIT Internal Medicine; ATTEND Internal Medicine
DX: R07.89 Other chest pain (principal); K29.00 Acute gastritis without bleeding; E11.65 Type 2 diabetes mellitus with hyperglycemia; J45.909 Unspecified asthma, uncomplicated; K21.9 Gastro-esophageal reflux disease without esophagitis; K92.0 Hematemesis; G43.909 Migraine, unspecified, not intractable, without status migrainosus; Z85.42 Personal history of malignant neoplasm of other parts of uterus; E66.9 Obesity, unspecified; Z68.31 Body mass index [BMI] 31.0-31.9, adult; Z79.899 Other long term (current) drug therapy; Z86.718 Personal history of other venous thrombosis and embolism; Z79.84 Long term (current) use of oral hypoglycemic drugs
CPT/HCPCS: 71010; 71275; 80048; 80053; 82550; 82948; 83036; 83735; 84443; 84484; 85025; 85610; 85730; 88305; 88312; 93005; 93971; 96372; 96374; 96375; 96376; 99285; C9113; G0378; J1815; J2060; J2405; J3030; Q9967

== ENCOUNTER 2018-01-24 17:49 | Emergency (ER) | payer SELFPAY ==
[~2018-01-24] VITALS: Ht 188 cm; Wt 143.2 kg
[~2018-01-24 17:49] MED LIST changes: +BUTA1CAP PO; +GLIP5 PO; +IMIT25TA PO; +PANT40TA3 PO; -ZOFR4TAB3 SL
[2018-01-24 18:01] VITALS: BP 149/97; PULSE 93; RESP 20; TEMP 98.4; O2SAT 96
[2018-01-24] MEDS ORDERED: METO25TA3 PO (18:13)
--- NOTE | 2018-01-24 18:21 | PD ---
HPI Chief Complaint: Injury Time Seen by Provider: 18:19 Travel History International Travel<30 days: No Contact w/Intl Traveler<30days: No Traveled to known affect area: No History of Present Illness HPI 42-year-old female presents for evaluation of right knee pain. She reports that 6 days ago she was stepping out of the car when she felt a "pop" sensation in the medial aspect of the right knee. Since then she has had pain in the right knee, aching, worse when walking, flexing, extending the right knee. She denies any other injuries and she has no other complaints at this time. PFSH Past Medical History Arthritis: No Asthma: Yes Autoimmune Disease: No Blood Disorders: No Anxiety: No Depression: No Heart Rhythm Problems: No Cancer: Yes (Uterine cancer ) Cardiovascular Problems: No (reports having heart murmur) High Cholesterol: No Chemotherapy: No Chest Pain: Yes Congestive Heart Failure: No COPD: No Cerebrovascular Accident: No Diabetes: No Diminished Hearing: No Deep Vein Thrombosis: Yes (FILTER IN NECK) Endocrine: No GERD: No Glaucoma: No Genitourinary: No Headaches: Yes Hepatitis: No Hiatal Hernia: No Hypertension: No Immune Disorder: No Kidney Stones: No Musculoskeletal: No (reports frequent leg cramps) Neurologic: No Psychiatric: No Reproductive: No Respiratory: Yes Migraines: Yes Myocardial Infarction: No Radiation Therapy: Yes (received in december 2009) Renal Failure: No Seizures: No Sickle Cell Disease: No Sleep Apnea: No Thyroid Disease: No Ulcer: No ?: Not : 0 Dilation and Curettage (D&C): Yes Past Surgical History Abdominal Surgery: No AICD: No Appendectomy: No Arteriovenous Shunt: No Body Medical Devices: IVC filter Cardiac Surgery: No Cholecystectomy: No Ear Surgery: No Endocrine Surgery: No Eye Surgery: No Genitourinary Surgery: No Gynecologic Surgery: Yes (D&C OCT 2009, PRESENTLY ADMITTED POST OP [facility]) Hysterectomy: Yes Insulin Pump: No Joint Replacement: No Oral Surgery: No Pacemaker: No Thoracic Surgery: No Other Surgery: Yes (FILTER PLACED IN NECK) Social History Alcohol Use: No (SOCIALLY) Tobacco Use: No Substance Use: Yes (Patient reports experimenting with marijuana and ectstacy in the past) Allergies-Medications (Allergen,Severity, Reaction): Coded Allergies: ciprofloxacin (Unverified Allergy, Intermediate, Rash, 01/24/18) metformin (Unverified Allergy, Intermediate, sob, 01/24/18) Reported Meds & Prescriptions Reported Meds & Active Scripts Active Imitrex (Sumatriptan Succinate) 25 Mg Tab 25 Mg PO DAILY PRN If a satisfactory response has not been obtained at 2 hours, a second dose may be administered Glucotrol (Glipizide) 5 Mg Tab 5 Mg PO DAILYAC Pantoprazole (Pantoprazole Sodium) 40 Mg Tab 40 Mg PO BID Reported Metoprolol Tartrate 25 Mg Tab 25 Mg PO BID Review of Systems Musculoskeletal: Positive: Pain Skin: Positive Other (Denies open wounds) Physical Exam Narrative GENERAL: Well-developed well-nourished female no acute distress SKIN: Warm and dry. CARDIOVASCULAR: Regular rate and rhythm. No murmur appreciated. RESPIRATORY: No accessory muscle use. Clear to auscultation. Breath sounds equal bilaterally. Extremities: Tender to palpation in the medial aspect of the right knee with no obvious deformity. The patient maintains full range of motion of the right knee. She has pain with flexion and extension of the right knee. There is no obvious laxity on anterior or posterior stress. Data Data Last Documented VS Vital Signs Date Time Temp Pulse Resp B/P (MAP) Pulse Ox O2 Delivery O2 Flow Rate FiO2 01/24/18 18:01 98.4 93 20 149/97 (114) 96 Orders Orders Knee, Complete (4vws) (01/24/18 ) Acetaminophen (Tylenol) (01/24/18 18:30) Splint Or Brace Apply/Monitor (01/24/18 19:12) Crutches (01/24/18 19:12) Ed Discharge Order (01/24/18 19:12) MDM Medical Decision Making Medical Screen Exam Complete: Yes Emergency Medical Condition: Yes Medical Record Reviewed: Yes Differential Diagnosis Ligamentous disruption, meniscal disruption, strain, tibial plateau fracture Narrative Course X-ray imaging will be obtained. Tylenol administered. X-ray imaging reveals osteoarthritic changes with no acute abnormality. Based on the history I would be concerned about ligamentous or meniscal disruption. The patient will be discharged with crutches and knee immobilizer. Recommend an outpatient MRI. Diagnosis Primary Impression: Knee internal derangement Departure Forms: Tests/Procedures, Work Release Enter return to work date: Jan 27, 2018 Additional Instructions: Crutches as needed. Ice to the affected area several times a day 10-50 minutes at a time. Tylenol Motrin for pain. Follow-up with primary care physician in 1 -2 weeks for recheck. If symptoms persist outpatient MRI imaging may be warranted. Med/Other Pt SpecificInfo: Orthopedic Instructions Disposition: 01 DISCHARGE HOME Condition: Stable Rivera Vargas Jan 24, 2018 18:21
[2018-01-24] MEDS ORDERED: ACETAMINOPHEN 325 MG TAB PO ONE (18:30)
--- NOTE | 2018-01-24 18:58 | RADRPT ---
EXAM DATE/TIME: 01/24/2018 18:31 [facility] COMPARISON: No previous studies available for comparison. INDICATIONS : Right knee pain from unknown injury. MEDICAL HISTORY : None. SURGICAL HISTORY : None. ENCOUNTER: Initial ACUITY: 4 - 6 days PAIN SCORE: 8/10 LOCATION: Right medial knee. FINDINGS: Four view examination of the right knee demonstrates no evidence of fracture or dislocation. Bony mi neralization is normal. There is mild to moderate osteoarthritis with osteophyte formation. The supra patellar soft tissues have a normal configuration. CONCLUSION: 1. [id number] osteoarthritis. No acute bony abnormality. Alexandr Guevara MD on January 24, 2018 at 18:55 Board Certified Radiologist. This report was verified electronically.
== END 2018-01-24 20:11 | disposition home or self-care (01) ==
LOC: NEPK 17:49
DX: M23.91 Unspecified internal derangement of right knee (principal)
CPT/HCPCS: 73564; 99283; E0113; L1830